=== PATIENT | male | born 1995 | race Caucasian/White ===

== ENCOUNTER 2017-10-12 20:40 | Emergency (ER) | payer OTHER, BC ==
[~2017-10-12] VITALS: Ht 188 cm; Wt 74.8 kg
[2017-10-12] MEDS ORDERED: RANITIDINE HCL75 MG PO (21:36)
[2017-10-12] MEDS ORDERED: BUSPIRONE HCL30 MG PO (21:37)
[2017-10-12] MEDS ORDERED: SERTRALINE HCL25 MG PO (21:38)
[2017-10-12] MEDS ORDERED: VITAMIN D2000 UNI1 PO (21:39)
== END 2017-10-13 00:16 | disposition home or self-care (01) ==
LOC: ED 20:40
DX: S61.432A Puncture wound without foreign body of left hand, initial encounter (principal); F17.200 Nicotine dependence, unspecified, uncomplicated; Z88.0 Allergy status to penicillin; Z79.899 Other long term (current) drug therapy; Z23 Encounter for immunization; Y33.XXXA Other specified events, undetermined intent, initial encounter
CPT/HCPCS: 90471; 90715; 99283